=== PATIENT | female | born 1980 | race Caucasian/White ===

== ENCOUNTER → 2022-02-23 | Outpatient (CLI) | payer OTHER ==
--- NOTE | 2022-02-23 15:48 | Diagnostic Imaging Report ---
INDICATION: LT SHOULDER PAIN COMPARISON: None. FINDINGS: 3 views of the left shoulder were obtained. There is no fracture, dislocation, or other acute bony abnormality identified. The soft tissues appear unremarkable. No radiopaque foreign body is identified. The visualized portions of the left lung are clear. IMPRESSION: No acute fractures or dislocations of the left shoulder. Dictated by: Dictated on workstation # [id number]
== END ==
LOC: RAD 15:26
PROVIDERS: ATTEND Family Medicine
DX: M25.512 Pain in left shoulder (principal)
CPT/HCPCS: 73030

== ENCOUNTER → 2022-03-30 | Outpatient (CLI) | payer OTHER | LOC: ORTHO 08:51 | PROVIDERS: ATTEND Orthopaedic Surgery | DX: M75.02 Adhesive capsulitis of left shoulder (principal) | CPT/HCPCS: 99203 ==

== ENCOUNTER → 2022-04-20 | Outpatient (CLI) | payer OTHER | LOC: ORTHO 10:42 | PROVIDERS: ATTEND Orthopaedic Surgery | DX: M75.02 Adhesive capsulitis of left shoulder (principal) | CPT/HCPCS: 99213 ==

== ENCOUNTER → 2022-05-10 | Outpatient (CLI) | payer OTHER ==
[~2022-05-10] MED LIST: ACHD5005 PO; HYDR200T46 PO; MELO15TA39 PO
== END ==
LOC: ORTHO 13:16
PROVIDERS: ATTEND Orthopaedic Surgery
DX: M75.02 Adhesive capsulitis of left shoulder (principal)
CPT/HCPCS: 99213

== ENCOUNTER 2022-05-11 05:29 | Outpatient (CLI) | payer OTHER ==
[~2022-05-11] VITALS: Ht 175.2 cm; Wt 95.3 kg
[2022-05-11] MEDS ORDERED: MELO15TA39 PO (09:14)
[2022-05-11] MEDS ORDERED: HYDR200T46 PO (09:14)
== END 2022-05-11 09:49 | disposition home or self-care (01) ==
LOC: PREOP 05:29
PROVIDERS: ATTEND Orthopaedic Surgery
DX: Z01.818 Encounter for other preprocedural examination (principal)

== ENCOUNTER 2022-05-15 06:26 | Day surgery (SDC) | payer OTHER ==
[~2022-05-15] VITALS: Ht 175.2 cm; Wt 95.3 kg
[2022-05-15] VITALS (12 sets, daily range): BP systolic 97–120; BP diastolic 39–68
[~2022-05-15 06:26] MED LIST changes: -ACHD5005 PO
[2022-05-15] MEDS ORDERED: LACTATED RINGERS 1,000 ML IV PRN (06:45)
[2022-05-15] MEDS ORDERED: TRIAMCINOLONE ACET (KENALOG-40) 40 MG/ML 1 ML VIAL IA ONE (07:00)
[2022-05-15] MEDS ORDERED: MIDAZOLAM 2 MG/2 ML (VERSED) VIAL ONE (07:53)
--- NOTE | 2022-05-15 08:39 | Progress Note-Pre Operative ---
Pre-Operative Progress Note Date of Available H&P: May 10, 2022 Date H&P Reviewed: May 15, 2022 Time H&P Reviewed: 08:30 History & Physical: H&P Reviewed, Patient Examed, No changes noted Pre-Operative Diagnosis: Left Shoulder Adhesive Capsulitis RON MUSTAFA MD May 15, 2022 08:39
[2022-05-15] MEDS ORDERED: KETOROLAC 30 MG/ML VIAL ONE (08:47)
[2022-05-15] MEDS ORDERED: SEVOFLURANE (ULTANE) 15 ML INHAL SOLN ONE (08:47)
[2022-05-15] MEDS ORDERED: LIDOCAINE PF 2% 5 ML (XYLOCAINE) VIAL ONE (08:47)
[2022-05-15] MEDS ORDERED: proPOfol 200 MG/20 ML (DIPRIVAN) VIAL IV ONE (08:47)
--- NOTE | 2022-05-15 09:01 | Anesthesia-General Post-Op ---
General Patient Condition Mental Status/LOC: Same as Preop Cardiovascular: Satisfactory Nausea/Vomiting: Absent Respiratory: Satisfactory Pain: Controlled Complications: Absent Post Op Complications Complications None Follow Up Care/Instructions Patient Instructions None needed. Anesthesia/Patient Condition Patient Condition Patient is doing well, no complaints, stable vital signs, no apparent adverse anesthesia problems. No complications reported per nursing. KAUSHIK MATUTE CRNA May 15, 2022 09:00
--- NOTE | 2022-05-15 09:02 | Operative Report - Ortho ---
Operative Report Surgeon (s)/Medical Billing Supervisor (s) Surgeon RON MUSTAFA MD Medical Billing Supervisor n/a Pre-Operative Diagnosis Left Shoulder Adhesive Capsulitis Post-Operative Diagnosis same Operative Report Date of Procedure: May 15, 2022 Name of Procedure Performed: Left Shoulder Manipulation and Injection Description & Findings After obtaining informed consent and marking the patient in the preoperative holding area, the patient was taken to the operating room and general anesthesia was induced. Surgical timeout was taken. Examination under anesthesia was performed and the shoulder demonstrated forward flexion of 110 degrees, abduction of 110 degrees, and external rotation of 45 degrees. Manipulation was performed with cross body abduction, followed by flexion, then abduction, and finally external rotation in 90 degrees of abduction. The shoulder was once again examined and found to have forward flexion of 180 degrees, abduction of 180 degrees, and external rotation of 70 degrees. This was accepted. The anterior portion of the shoulder was prepped with alcohol and 80 mg of kenalog w as injected intraarticularly. Patient tolerated the procedure well and emerged from anesthesia without difficulty. Anesthesia Type General Estimated Blood Loss none Specimen(s) collected/removed none RON MUSTAFA MD May 15, 2022 09:02
[2022-05-15] MEDS ORDERED: ACHD5005 PO (09:04)
[2022-05-15] MEDS ORDERED: morphine INJ 10 MG/ML 1ML (SYR OR VIAL) ONE (09:05)
[2022-05-15] MEDS ORDERED: ONDANSETRON 4 MG/2 ML (SDV) Z0FRAN IVP PRN (09:15)
[2022-05-15] MEDS ORDERED: morphine INJ 10 MG/ML 1ML (SYR OR VIAL) IVP ONE (09:15)
[2022-05-15] MEDS: fentaNYL INJ 100 MCG/2 ML AMP IVP ONE ×2 (09:23→09:25)
[2022-05-15] MEDS ORDERED: HYDROcodone/APAP 5 MG/325 MG (LORTAB) TAB ONE (10:37)
[2022-05-15] MEDS ORDERED: HYDROcodone/APAP 5 MG/325 MG (LORTAB) TAB PO ONE (10:45)
== END 2022-05-15 11:15 | disposition home or self-care (01) ==
LOC: SDC 06:26
PROVIDERS: ATTEND Orthopaedic Surgery
DX: M75.02 Adhesive capsulitis of left shoulder (principal); Z28.310 Unvaccinated for COVID-19
CPT/HCPCS: 84703; 87081

== ENCOUNTER → 2022-05-30 | Outpatient (CLI) | payer OTHER ==
[~2022-05-30] MED LIST changes: +ACHD5005 PO
== END ==
LOC: ORTHO 09:52
PROVIDERS: ATTEND Orthopaedic Surgery
DX: Z47.89 Encounter for other orthopedic aftercare (principal)

== ENCOUNTER 2022-06-09 16:13 | Outpatient (RCR) | payer OTHER | END 2022-06-10 | disposition home or self-care (01) | PROVIDERS: ATTEND Orthopaedic Surgery | DX: M75.02 Adhesive capsulitis of left shoulder (principal) ==

== ENCOUNTER → 2022-08-29 | Outpatient (CLI) | payer OTHER | LOC: ORTHO 11:36 | PROVIDERS: ATTEND Orthopaedic Surgery | DX: M79.602 Pain in left arm (principal) | CPT/HCPCS: 99213 ==